=== PATIENT | female | born 1990 | race Hispanic/Latino ===

== ENCOUNTER 2024-11-20 07:40 | Outpatient (CLI) | payer SELFPAY ==
[~2024-11-20] VITALS: Ht 165.1 cm; Wt 64.7 kg
[2024-11-20 08:00] VITALS: BP 116/73
[2024-11-20] MEDS ORDERED: PRENTAB9 PO (08:02)
[2024-11-20 09:40] VITALS: BP 100/60
[2024-11-22] MEDS ORDERED: IBUP80TA PO (11:43)
[2024-11-22] MEDS ORDERED: ACET-683 PO (11:43)
== END 2024-11-20 11:44 | disposition home or self-care (01) ==
LOC: M LDO 07:40
PROVIDERS: ATTEND Obstetrics & Gynecology
DX: O47.1 False labor at or after 37 completed weeks of gestation (principal); Z3A.37 37 weeks gestation of pregnancy
CPT/HCPCS: 59025; G0463